=== PATIENT | male | born 1975 | race Caucasian/White ===

== ENCOUNTER 2016-10-06 20:53 | Emergency (ER) | payer OTHER ==
[~2016-10-06] VITALS: Ht 172.7 cm; Wt 90.5 kg
[2016-10-06 20:55] VITALS: BP 140/82; PULSE 95; RESP 18; TEMP 98.6; O2SAT 96
[2016-10-06] MEDS ORDERED: HYDR-3533 PO (21:43)
[2016-10-06] MEDS ORDERED: DICL50TA3 PO (21:43)
[2016-10-06] MEDS ORDERED: AMOX500T PO (21:43)
[2016-10-06] MEDS ORDERED: AMOXICILLIN (TRIHYDRATE) 500 MG CAP PO ONE (21:45)
[2016-10-06] MEDS ORDERED: ACETAMINOPHEN/HYDROcodone 325 MG/5 MG TAB PO ONE (21:45)
--- NOTE | 2016-10-06 21:47 | PD ---
HPI Chief Complaint: Oral / Dental Pain or Problem Time Seen by Provider: 21:44 Travel History International Travel<30 days: No Contact w/Intl Traveler<30days: No Traveled to known affect area: No History of Present Illness HPI 41-year-old white male presents to emergency department with complaints of dental pain. He states that he was eating this evening and part of his left upper molar broke. The pain is moderate to severe. no alleviating factors. PFSH Past Medical History Medical History: Denies Significant Hx Tetanus Vaccination: < 5 Years Influenza Vaccination: No Social History Alcohol Use: Yes (occasionally) Tobacco Use: Yes (1 PPD) Substance Use: No Allergies-Medications (Allergen,Severity, Reaction): Coded Allergies: No Known Allergies (Unverified , 10/06/16) Reported Meds & Prescriptions Reported Meds & Active Scripts Active Amoxicillin 500 Mg Tab 1,000 Mg PO BID Diclofenac Sodium DR (Diclofenac Sodium) 50 Mg Tabdr 50 Mg PO TID Lortab (Hydrocodone-Acetaminophen) 5-325 Mg Tab 1 Tab PO Q8HR PRN Review of Systems Except as stated in HPI: all other systems reviewed are Neg Physical Exam Narrative GENERAL: Well-developed, well-nourished in no acute distress. Nontoxic appearing. HEAD: Normocephalic, atraumatic. EYES: Pupils equal round and reactive. Extraocular motions intact. No scleral icterus. No injection or drainage. ENT: TMs clear without erythema. The external auditory canals clear. Nose: clear . Posterior pharynx is pink and moist. No tonsillar edema or exudate. Uvula midline. Airway patent. The patient has a large dental carry in tooth # 16. There appears to be a fracture of the cusp NECK: Trachea midline.Supple, nontender, moves head freely. No central bony tenderness or spasm. CARDIOVASCULAR: Regular rate and rhythm without murmurs, gallops, or rubs. RESPIRATORY: Clear to auscultation. Breath sounds equal bilaterally. No wheezes , rales, or rhonchi. GASTROINTESTINAL: Abdomen soft, non-tender, nondistended. No hepato-splenomegaly , or palpable masses. No guarding. EXTREMITIES: No clubbing, cyanosis, or edema. No joint tenderness, effusion, or edema noted. BACK: Nontender without deformity or crepitance. No flank tenderness. Data Data Last Documented VS Vital Signs Date Time Temp Pulse Resp B/P Pulse Ox O2 Delivery O2 Flow Rate FiO2 10/06/16 20:55 98.6 95 18 140/82 96 Room Air Orders Amoxicillin (Trimox) (10/06/16 21:45) Acetamin-Hydrocod 325-5 Mg ([place] 5-325 (10/06/16 21:45) MDM Medical Decision Making Medical Screen Exam Complete: Yes Emergency Medical Condition: Yes Medical Record Reviewed: Yes Differential Diagnosis MDM: Moderate Differential diagnoses: Dental abscess, dental caries, osteitis, cellulitis Narrative Course Patient given amoxicillin 1 g and Lortab 5 a grams by mouth. This is dental fracture, dentalgia, dental caries Diagnosis Primary Impression: dental fracture, Additional Impressions: dental caries dentalgia Patient Instructions: Narcotic given in the ED, General Instructions Departure Forms: Tests/Procedures, Work Release Special Instructions: No work 2 days. Additional Instructions: Rest. Saltwater gargles. Palisade oil on cotton balls. Amoxicillin, diclofenac and Lortab follow-up with a dentist as soon as possible. And return to the ER if any problems. Med/Other Pt SpecificInfo: Prescription(s) given Scripts Amoxicillin 500 Mg Tab1,000 Mg PO BID #40 TAB Prov:Joe Sierra MD 10/06/[address] 50 Mg Tabdr50 Mg PO TID #21 TAB Prov:Joe Sierra MD 10/06/16 Hydrocodone-Acetaminophen (Lortab)5-325 Mg Tab1 Tab PO Q8HR PRN (PAIN) #12 TAB Prov:Joe Sierra MD 10/06/16 Disposition: 01 DISCHARGE HOME Condition: Stable Landon Aguilera Oct 06, 2016 21:47
== END 2016-10-06 22:13 | disposition home or self-care (01) ==
LOC: NEPD 20:53
DX: S02.5XXA Fracture of tooth (traumatic), initial encounter for closed fracture (principal); K02.9 Dental caries, unspecified; F17.200 Nicotine dependence, unspecified, uncomplicated; X58.XXXA Exposure to other specified factors, initial encounter
CPT/HCPCS: 99284